=== PATIENT | female | born 1970 | race Caucasian/White ===

== ENCOUNTER 2024-03-12 09:39 | Emergency (ER) | payer MEDICARE, SELFPAY ==
[2024-03-12 09:55] VITALS: BP 116/61; PULSE 91; RESP 18; TEMP 35.8; O2SAT 98
--- NOTE | 2024-03-12 10:01 | ED_ITS ---
HPI - URI/Sore Throat General Chief Complaint: Upper Respiratory Infection Stated Complaint: SOB/Cough Time Seen by Provider: 03/12/24 09:40 Source: patient Mode of arrival: ambulatory Limitations: no limitations History of Present Illness HPI Narrative: Patient is a 54-year-old female who presents with 4 days of she feels dry cough, congestion, wheezing and shortness of breath on exertion. Has a history of a tr iple bypass and peripheral vascular disease with stents. Grandson diagnosed with pneumonia last week. Denies any fever, chills, nausea, vomiting, diarrhea. Related Data Home Medications ?Medication ?Instructions ?Recorded ?Confirmed ?Last Taken ?Type alprazolam 1 mg tablet (Xanax) 1 mg PO HS 03/12/24 03/12/24 Unknown History atorvastatin .Route 03/12/24 Unknown History clopidogrel 75 mg tablet (Plavix) 75 mg PO DAILY 03/12/24 03/12/24 Unknown History metoprolol tartrate 25 mg tablet 12.5 mg PO BID 03/12/24 03/12/24 Unknown History Allergies Allergy/AdvReac Type Severity Reaction Status Date / Time ciprofloxacin (From Cipro) Allergy Severe Anaphylaxis Verified 03/12/24 10:25 Review of Systems Review of Systems: All systems reviewed & are unremarkable except as noted in HPI and below Constitutional: Constitutional: Denies body ache(s), Denies chills, Denies fatigue, Denies fever(s), Denies headache(s), Denies malaise and Denies weakness Eyes: Eyes: Denies blurry vision, Denies itchy eyes and Denies loss of vision ENT: Denies otalgia, Denies headache(s), Reports nasal congestion, Denies sinus pain and Denies sore throat Cardiovascular: Cardiovascular: Denies chest pain, Denies irregular heart rhythm, Denies dyspnea and Reports dyspnea on exertion Respiratory: Respiratory: Reports cough, Denies dyspnea and Reports wheezing Gastrointestinal: Gastrointestinal: Denies abdominal pain, Denies diarrhea, Denies nausea and Denies vomiting Musculoskeletal: Musculoskeletal: Denies back pain, Denies myalgias and Denies arthralgias Integumentary/Breasts: Skin/Breast: Denies pruritus and Denies rash Neurologic: Denies headache(s), Denies loss of vision and Denies weakness Psychiatric: Psychiatric: Reports no additional psychiatric complaints Endocrine: Endocrine: Denies fatigue Allergic/Immunologic: Allergic/Immunologic: Denies itchy eyes PMFSH Comments At time of signature, agree with nursing past medical, surgical, social and family history. There is no relevant family history pertinent to the presenting complaint. Exam Const: General: cooperative, healthy appearing, comfortable, no acute distress and well nourished Nutritional Appearance: well nourished Orientation/consciousness: patient oriented x3 Limitations: no limitations HENMT: Head: normal to inspection, normocephalic and atraumatic Ears: hearing grossly normal bilaterally, external ears normal, TM's normal bilaterally, EAC's normal and no periauricular adenopathy Face/Nose/Sinus: Normal external nose present, Abnormal mucous membranes and turbinates present erythematous bilateral and diffuse, normal facial exam, sinuses nontender and face symmetric Face and sinus: normal facial exam, sinuses nontender and face symmetric Mouth: Yes Normal oral and palatal mucosa present, Yes lip normal, Yes tongue normal, Yes Normal salivary glands and ducts present, Yes oropharynx normal and Yes moist mucous membranes Teeth and gingiva: dentition normal Throat: posterior oropharynx normal, tonsils normal and uvula midline Eyes: General: appearance normal, both eyes and all related structures Alignment and Position: alignment normal and position normal Periorbital: periorbital findings normal Eyelids: eyelids normal Pupils: Equal, round and reactive pupils present Neck: Neck: normal visual inspection, full ROM, no lymphadenopathy and supple Chest: Chest palpation & inspection: normal inspection of the chest and normal palpation of entire chest wall Resp: Effort & Inspection: normal respiratory effort and able to speak in complete sentences Auscultation: crackles on the left in the lower lung gould (coarse), no rales, no rhonchi and no wheezes Cardio: Rate: regular rate Rhythm: regular rhythm Heart sounds: S1 normal heart sound present and S2 normal heart sound present GI: Inspection: normal to inspection Skin: General skin exam: normal color and no rashes or lesions noted Neuro: General: patient oriented x3 and moves all extremities Cranial nerves: Yes Equal, round and reactive pupils present Speech: normal speech Gait exam (Neuro): Normal gait present Extrem: General: normal to inspection, full ROM and no edema Psych: Appearance: grossly normal and well kempt Mental Status: mental status grossly normal Speech and movement: Normal speech and movement present Affect: normal affect Attitude: cooperative Thought process: Normal thought process present Course Course Emergency Course: Discharge instructions reviewed with patient, as well as provided in writing per nursing staff. The instructions also include specific and strict return/GO TO THE ER as well as f/u information. All questions have been answered, and the patient deny any further questions with discharge and discharge plan. Portions of this record may have been created with voice recognition software Level of Care: Express Care Visit Vital Signs Vital signs: Vital Signs Temperature 35.8 C L 03/12/24 09:55 Pulse Rate 91 03/12/24 09:55 Respiratory Rate 18 03/12/24 09:55 Blood Pressure 116/61 03/12/24 09:55 Pulse Oximetry 98 03/12/24 09:55 Oxygen Delivery Room Air 03/12/24 09:55 Temperature 35.8 C L 03/12/24 09:55 Pulse Rate 91 03/12/24 09:55 Respiratory Rate 18 03/12/24 09:55 Blood Pressure 116/61 03/12/24 09:55 Pulse Oximetry 98 03/12/24 09:55 Oxygen Delivery Room Air 03/12/24 09:55 Reviewed MDM - URI/Sore Throat MDM Narrative Medical decision making narrative: Patient is a 54-year-old female with significant past medical history including stents in heart and legs, COPD. Will treat with antibiotics and steroids due to risk factors. Discussed course of treatment with patient. Pt well hydrated appearing, in no respiratory distress, hemodynamically stable. Recommend supportive care. The patient is stable at time of discharge the clinical impression was discussed and the patient was given the opportunity to ask questions, which were addressed as completely as possible given the information available at present. Anticipatory guidance and return to care precautions were discussed and the importance of primary care follow-up was stressed and encouraged. The patient voiced understanding of the plan, indications to return, and the need for follow-up. Differential diagnosis considered: [place] virus, strep pharyngitis, allergic rhinitis, upper respiratory tract infection, sinusitis, rhinosinusitis, nasopharyngitis. viral pharyngitis, otitis media, otitis externa, otitis effusion, foreign body, cerumen impaction, viral syndrome, and influenza.? Exam findings show no acute concerns or changes; patient is non-toxic appearing and is in no distress.? Patient is appropriate for outpatient treatment and follow- up.? Medical Records Attestation: I reviewed the patient's medical records. Discharge Plan Discharge Clinical Impression: Upper respiratory infection with cough and congestion Patient Disposition: Home, Self-Care Condition: Stable Instructions: Upper Respiratory Infection (ED) Additional Instructions: Take antibiotic as prescribed. Take steroids in the morning with food. Use inhaler with spacer as needed. Other symptomatic treatments include: -Alternate Tylenol and Motrin per package directions for fever or pain. -Antihistamine medication such as Benadryl at night and Zyrtec/Claritin/Odalys during the day can help improve symptoms. -Use Flonase twice a day for 5 days then daily to help reduce the inflammation and dry up your sinuses. -You can also use Sudafed or Mucinex. Be sure to drink plenty of water with these medications at least 8 ounces with every dose and it is important to drink 8 to 10 glasses of water per day. Water is a natural decongestant -Eat and drink things that are easy to swallow, like tea or soup, or popsicles. -Oral rinses such as: Salt water gargles and/or may use topical anesthetic (eg. Chloraseptic spray) or lozenges to relieve dryness or throat pain). -Frequent hand washing or hand pe electrical engineer is one of the best ways to prevent spread of infection. -Using a vaporizer or humidifier at night will also help thin secretions and help with coughing up phlegm. -Follow up with primary care provider in 3-5 days if condition is not improving - For new or worsening symptoms go directly to the nearest ER Patient Language: Citizen Of [place] Prescriptions: New prednisone 20 mg tablet 40 mg PO DAILY 5 Days Qty: 10 0RF amoxicillin 875 mg tablet 875 mg PO Q12H 7 Days Qty: 14 0RF albuterol sulfate 90 mcg/actuation HFA aerosol inhaler 2 puff inhalation QID PRN (Reason: shortness of breath or wheezing) Qty: 6.7 0RF (DME) Aerochamber MV Spacer See Rx Instructions .Route Qty: 1 0RF Rx Instructions: As directed No Action metoprolol tartrate 25 mg tablet 12.5 mg PO BID clopidogrel [Plavix] 75 mg tablet 75 mg PO DAILY atorvastatin .Route alprazolam [Xanax] 1 mg tablet 1 mg PO HS Follow-up/Referrals: Robin,Lucius Long MD [Primary Care Provider] - 3 Days Time of Disposition: 10:48
== END 2024-03-12 10:50 | disposition home or self-care (01) ==
PROVIDERS: Emergency Provider Nurse Practitioner Family; PCP Internal Medicine
DX: J06.9 Acute upper respiratory infection, unspecified (principal); Z79.899 Other long term (current) drug therapy
CPT/HCPCS: 99203; G0463

== ENCOUNTER 2024-04-18 16:44 | Emergency (ER) | payer MEDICARE, SELFPAY ==
[2024-04-18 16:56] VITALS: BP 88/58; PULSE 108; RESP 20; TEMP 36.6; O2SAT 95
--- NOTE | 2024-04-18 17:59 | ED_ITS ---
HPI - URI/Sore Throat General Chief Complaint: Upper Respiratory Infection Stated Complaint: Sinus/Cough Time Seen by Provider: 04/18/24 18:00 Source: patient, RN notes reviewed and old records reviewed Mode of arrival: ambulatory Limitations: no limitations History of Present Illness HPI Narrative: Patient presents with 2 days of URI symptoms. She recently recovered from pneumonia. She initially says she feels she needs steroids and antibiotics. After more discussion, she declines chest x-ray or flu/COVID testing. She reports that her 2-year-old goes to daycare and often times brings home lots of bugs that have to work themselves out. Related Data Home Medications ?Medication ?Instructions ?Recorded ?Confirmed ?Last Taken ?Type alprazolam 1 mg tablet (Xanax) 1 mg PO HS 03/12/24 03/12/24 Unknown History atorvastatin .Route 03/12/24 Unknown History clopidogrel 75 mg tablet (Plavix) 75 mg PO DAILY 03/12/24 03/12/24 Unknown Hi story metoprolol tartrate 25 mg tablet 12.5 mg PO BID 03/12/24 03/12/24 Unknown History aripiprazole 5 mg tablet mg 04/18/24 Unknown History citalopram 20 mg tablet mg 04/18/24 Unknown History Allergies Allergy/AdvReac Type Severity Reaction Status Date / Time ciprofloxacin (From Cipro) Allergy Severe Anaphylaxis Verified 04/18/24 17:33 Review of Systems Review of Systems: All systems reviewed & are unremarkable except as noted in HPI and below Constitutional: Constitutional: Reports no additional constitutional complaints ENT: Reports system reviewed and no additional complaints, except as docum ented Cardiovascular: Cardiovascular: Reports no additional cardiovascular complaints Respiratory: Respiratory: Reports no additional respiratory complaints Gastrointestinal: Gastrointestinal: Reports no additional gastrointestinal complaints [facility] Comments At the time of my signature, I reviewed and agree with the nursing past medical, surgical, social, and family history. There is no relevant family history pertinent to the patient complaint. Exam Const: General: cooperative, no acute distress, alert and awake Orientation/consciousness: oriented to person, oriented to place and oriented to time HENMT: Head: normal to inspection Resp: Effort & Inspection: normal respiratory effort and able to speak in complete sentences Auscultation: clear to auscultation bilaterally, no crackles, no rales, no rhonchi and no wheezes Cardio: Palpation: normal PMI Rate: regular rate Rhythm: regular rhythm Heart sounds: S1 normal heart sound present and S2 normal heart sound present Neuro: General: oriented to person, oriented to place and oriented to time Cranial nerves: Yes CN's II-XII intact bilaterally Psych: Appearance: grossly normal Thought process: Normal thought process present Insight: Good insight present (Psych) Judgement: Good judgement present (Psych) Course Course Level of Care: Express Care Visit Vital Signs Vital signs: Vital Signs Temperature 97.8 F 04/18/24 16:56 Pulse Rate 108 H 04/18/24 16:56 Respiratory Rate 20 04/18/24 16:56 Blood Pressure 88/58 L 04/18/24 16:56 Pulse Oximetry 95 04/18/24 16:56 Oxygen Delivery Autopap 04/18/24 16:56 Temperature 97.8 F 04/18/24 16:56 Pulse Rate 108 H 04/18/24 16:56 Respiratory Rate 20 04/18/24 16:56 Blood Pressure 88/58 L 04/18/24 16:56 Pulse Oximetry 95 04/18/24 16:56 Oxygen Delivery Autopap 04/18/24 16:56 Reviewed Discharge Plan Discharge Clinical Impression: Upper respiratory infection Qualifiers: URI type: unspecified viral URI Qualified Code(s): J06.9 - Acute upper respiratory infection, unspecified Patient Disposition: Home, Self-Care Condition: Stable Instructions: Antibiotic Form, Cold Symptoms (ED) Additional Instructions: Take [id number] medications as needed to treat your symptoms. Please follow package instructions. Follow-up with primary care provider. Emergency department for new or worse symptoms Patient Language: Turkish Prescriptions: No Action metoprolol tartrate 25 mg tablet 12.5 mg PO BID clopidogrel [Plavix] 75 mg tablet 75 mg PO DAILY atorvastatin .Route alprazolam [Xanax] 1 mg tablet 1 mg PO HS albuterol sulfate 90 mcg/actuation HFA aerosol inhaler 2 puff inhalation QID PRN (Reason: shortness of breath or wheezing) Qty: 6.7 0RF (DME) Aerochamber MV Spacer See Rx Instructions .Route Qty: 1 0RF Rx Instructions: As directed ondansetron 4 mg tablet,disintegrating 4 mg PO Q6-8H PRN (Reason: nausea and vomiting) Qty: 7 0RF citalopram 20 mg tablet aripiprazole 5 mg tablet Follow-up/Referrals: Robin,Lucius Long MD [Primary Care Provider] - 1 Week Time of Disposition: 18:10
== END 2024-04-18 18:17 | disposition home or self-care (01) ==
PROVIDERS: Emergency Provider Nurse Practitioner Family; PCP Internal Medicine
DX: J06.9 Acute upper respiratory infection, unspecified (principal); I10 Essential (primary) hypertension; E78.00 Pure hypercholesterolemia, unspecified; J44.9 Chronic obstructive pulmonary disease, unspecified; I73.9 Peripheral vascular disease, unspecified; F41.9 Anxiety disorder, unspecified; Z95.1 Presence of aortocoronary bypass graft; Z95.820 Peripheral vascular angioplasty status with implants and grafts; Z95.828 Presence of other vascular implants and grafts
CPT/HCPCS: 99211; G0463

== ENCOUNTER 2025-01-18 18:04 | Emergency (ER) | payer MEDICARE, SELFPAY ==
--- NOTE | ~2025-01-18 | XR_ITS ---
EXAMINATION: XR chest 2V, 01/18/2025 18:32 CDT HISTORY: cough few days, smoker, hx pneumonia, copd, emphysemz COMPARISON: No comparisons available. Technique: 2 views obtained. Findings: The lungs are clear, no effusion. No pneumothorax. Heart is normal size. Mediastinal and hilar contours are within normal limits. Bony thorax no acute abnormality. Impression: No acute cardiopulmonary abnormality. Reviewed, dictated and finalized at location P. Impression: No acute cardiopulmonary abnormality.
[2025-01-18 18:15] VITALS: BP 125/78; PULSE 93; RESP 18; TEMP 36.3; O2SAT 98
--- NOTE | 2025-01-18 18:20 | ED_ITS ---
HPI - Female Genitourinary General Chief complaint: Urogenital-Female Stated complaint: UTI/Sinus Time Seen by Provider: 01/18/25 18:20 Source: patient, RN notes reviewed and old records reviewed Mode of arrival: ambulatory Limitations: no limitations History of Present Illness HPI Narrative: 54 year old female who presents to [facility] care with complaints of 3-4 days of nasal congestion with drainage,productive cough of greenish phlegm, post nasal drainage headache and diarrhea X1. Patient reports no fevers, body aches or sore throat, Patient reports that she has been taking Delsym cough medication and NyQuil for her URI symptoms. Patient reports that she has had past pneumonia and is concerned for present pneumonia. Patient also reports that she has UTI symptoms of urinary frequency and burning,, dark and foul odorous urine, some left lower back pain. She reports that she doesn't feel like she is emptying completely. Patient denies any nausea or vomiting, lower abdominal pain or any flankpain. Patient is on daily Plavix for cardiac and peripheral vascular disease. MD elicited complaint: UTI and other (URI symptoms) Onset (ago): day(s) (3-4 days) Location of symptoms: perineum and low back Severity scale (1-10): 3 Quality of pain: dull and burning Vaginal discharge: none Vaginal bleeding: none Treatment prior to arrival: other (taking Delsym cough syrup and NyQuil for her URI symptoms) Related Data Home Medications ?Medication ?Instructions ?Recorded ?Confirmed ?Last Taken ?Type alprazolam 1 mg tablet (Xanax) 1 mg PO HS 03/12/24 Unknown History atorvastatin .Route 03/12/24 Unknown His tory clopidogrel 75 mg tablet (Plavix) 75 mg PO DAILY 03/1203/12/24 Unknown History metoprolol tartrate 25 mg tablet 12.5 mg PO BID 03/12/24 Unknown History aripiprazole 5 mg tablet mg 04/18/24 Unknown History citalopram 20 mg tablet mg 04/18/24 Unknown History pantoprazole 40 mg tablet,delayed mg PO 01/18/25 Unkn own History release Allergies Allergy/AdvReac Type Severity Reaction Status Date / Time [facility] Allergy Severe Anaphylaxis Verified 01/18/25 18:05 Review of Systems Review of Systems: CONSTITUTIONAL: Denies fever, chills, or sweats. CARDIOVASCULAR: Denies chest pain, palpitations, or edema. RESPIRATORY: reports productive cough with nasal congestion and drainage, denies any acute dyspnea or any fevers, GASTROINTESTINAL: Denies abdominal pain, nausea, vomiting, or diarrhea. GENITOURINARY: Reports dysuria, frequency, urgency. Denies flank pain or visible hematuria.urine is odorous and dark SKIN: Denies rash or itching. MUSCULOSKELETAL: Reports left lower back pain or myalgia. Denies CVA tenderness NEUROLOGIC: Denies headache All systems reviewed & are unremarkable except as noted in HPI and below PMFSH Past Medical History Medical History (Updated 01/20/25 @ 16:31 by Denise Torres APRN) Insomnia Anxiety and depression Hyperlipidemia Hypertension Peripheral vascular disease stents in legs bilateral abdomen and gastric COPD (chronic obstructive pulmonary disease) Surgical History Surgical History (Updated 01/20/25 @ 16:27 by Denise Torres APRN) History of open heart surgery 3 vessel bypass Social History Social History (Updated 01/20/25 @ 16:31 by Denise Torres APRN) Smoking packs per day: 0.5 Smoking cigarettes per day: 10.0 Smoking status: Current every day smoker Tobacco type: cigarettes Alcohol intake: unknown Substance use: unknown Gender identity (if verbalized by the patient): Female Comments At time of signature, agree with nursing past medical, surgical, social and family history. There is no relevant family history pertinent to the presenting complaint Exam Narrative: GENERAL: older than stated years-appearing, well-nourished, and in no acute distress. HEAD: Normocephalic, atraumatic. NECK: Supple.no lymphadenopathy CHEST: coarse decreased to auscultation. No respiratory distress.cough noted SAO2 98% on room air HEART: Regular rate and rhythm. No murmur heard. Normal peripheral pulses. ABDOMEN: Soft, nontender, nondistended, normal active bowel sounds. No CVA tenderness, burning and pain with urination EXTREMITIES: Normal range of motion. No edema. SKIN: Warm, dry, no rash. NEURO: No focal deficits. Alert and oriented x3. Course Course Emergency Course: Patient is aware of diagnosis, understands and agrees to treatment plan.? Anticipatory guidance given.? Patient agrees to follow-up as directed and is aware of reasons to seek care at the emergency department. Portions of this record may have been created with voice recognition software Level of Care: Express Care Visit Vital Signs Vital signs: Vital Signs Temperature 36.3 C L 01/18/25 18:15 Pulse Rate 93 01/18/25 18:15 Respiratory Rate 18 01/18/25 18:15 Blood Pressure 125/78 01/18/25 18:15 Pulse Oximetry 98 01/18/25 18:15 Oxygen Delivery Room Air 01/18/25 18:15 Temperature 36.3 C L 01/18/25 18:15 Pulse Rate 93 01/18/25 18:15 Respiratory Rate 18 01/18/25 18:15 Blood Pressure 125/78 01/18/25 18:15 Pulse Oximetry 98 01/18/25 18:15 Oxygen Delivery Room Air 01/18/25 18:15 MDM - Female Genitourinary MDM Narrative Medical decision making narrative: Exam findings and UA show no acute concerns or changes; patient is non-toxic appearing and is in no distress.? Patient is appropriate for outpatient treatment and follow-up. Differential Diagnosis Differential diagnosis: Likely urinary tract infection, cystitis and other (dysuria, URI, cough and congestion) Lab Data Attestation: I reviewed the patient's lab results. Lab results narrative: Urine dip: Glucose negative, bilirubin negative, ketone trace specific gravity 1.015 blood 2+ pH 5.5 protein 2+ urobilinogen 1.0 nitrate positive leukocyte 2+ Labs: Lab Results 01/18/25 Range/Units 18:22 POC Urine Color Dark POC Urine Clarity Cloudy POC Urine pH 5.5 POC Ur Specif [place] 1.015 POC Urine Protein 2+ (Negative) POC Ur Glucose (UA) Negative (Negative) POC Urine Ketones Trace (Negative) POC Urine Blood 2+ (Negative) POC Urine Nitrite Positive (Negative) POC Urine Bilirubin Negative (Negative) POC Urine Urobilinogen 1.0 POC U Leukocyte Esteras 2+ (Negative) reviewed Imaging Data Attestation: I personally reviewed and interpreted this imaging study as follows: My impression: no acute cardiopulmonary abnormality Radiologist's impression: [facility] [address] [place] [address] XRay Report Signed Patient: Desiree Christianson : 1970 MR#: [id number] Age: 54 Acct:[id number] Loc: [facility] ADM Date: 01/18/[address]: Ordering Physician: Denise Torres APRN Date of Service: 01/18/25 Procedure(s): XR chest 2V Accession Number(s): [id number] cc: Robin, Lucius Long MD; Denise Torres APRN~ EXAMINATION: XR chest 2V, 01/18/2025 18:32 CDT HISTORY: cough few days, smoker, hx pneumonia, copd, emphysemz COMPARISON: No comparisons available. Technique: 2 views obtained. Findings: The lungs are clear, no effusion. No pneumothorax. Heart is normal size. Mediastinal and hilar contours are within normal limits. Bony thorax no acute abnormality. Impression: No acute cardiopulmonary abnormality. Reviewed, dictated and finalized at location P. Please be advised this is a medical document. It is intended for [id number] communication. It is written in medical language and may contain unfamiliar abbreviations or verbiage. Medical documents are intended to carry relevant information, facts as evident, and the clinical opinion of the practitioner at the time of the encounter. This report may have been done utilizing a voice recognition system. Attempts have been made to correct errors. However, there may be uncorrected grammatical, spelling, and recognition errors present. The file time of this note does not necessarily represent the time of service. Dictated By: Jose Hubbard MD 01/18/251844 Signed By: <Electronically signed by Jose Hubbard MD in OV> 01/18/251844 Critical Care Time Critical Care Time Critical Care Time: No Discharge Plan Discharge Clinical Impression: Cough in adult patient Urinary tract infection Qualifiers: Urinary tract infection type: site unspecified Hematuria presence: with hematuria Qualified Code(s): N39.0 - Urinary tract infection, site not specified Patient Disposition: Home Condition: Stable Instructions: Antibiotic Form, Urinary Tract Infection in Women (ED), Acute C ough (ED) Additional Instructions: Increase fluids especially cranberry juice and water Avoid caffeine and carbonated beverages Antibiotic as directed Tylenol/ibuprofen for pain or fever Follow-up with her primary care provider if further problems or concerns Recheck if you have fever over 101, nausea and vomiting. Continue to use your inhaler as prescribed Zyrtec Claritin or Odalys daily include Coricidin brand decongestant If your symptoms persist, change or worsen significantly before you can contact your personal physician then please, without delay, go to the emergency depar tment for further evaluation. Follow-up with PCP in 7-10 days or sooner if needed Stop smoking Patient Language: Mohawk Prescriptions: New amoxicillin-pot clavulanate 875-125 mg tablet 1 tablet PO Q12H Qty: 20 0RF Rx Instructions: take all doses of medication, recommend eating Activia yogurt or taking probiotic while on this medication No Action metoprolol tartrate 25 mg tablet 12.5 mg PO BID clopidogrel [Plavix] 75 mg tablet 75 mg PO DAILY atorvastatin .Route alprazolam [Xanax] 1 mg tablet 1 mg PO HS albuterol sulfate 90 mcg/actuation HFA aerosol inhaler 2 puff inhalation QID PRN (Reason: shortness of breath or wheezing) Qty: 6.7 0RF (DME) Aerochamber MV Spacer See Rx Instructions .Route Qty: 1 0RF Rx Instructions: As directed ondansetron 4 mg tablet,disintegrating 4 mg PO Q6-8H PRN (Reason: nausea and vomiting) Qty: 7 0RF citalopram 20 mg tablet aripiprazole 5 mg tablet pantoprazole 40 mg tablet,delayed release (DR/EC) PO Follow-up/Referrals: Robin,Lucius Long MD [Primary Care Provider] Time of Disposition: 18:58 Quality Jaquan Coma Scale Eyes: Open Verbal: Oriented and Alert Motor: Follows Commands Jaquan Coma Total Score: 15
[2025-01-18 18:25] LABS: EDUAAPPEAR Cloudy; EDUABILI Negative (Negative); EDUABLOOD 2+ (Negative); EDUACOLOR1 Dark; EDUAGLUCOSE Negative (Negative); EDUAKETONE Trace (Negative); EDUALEUKO 2+ (Negative); EDUANITRATE Positive (Negative); EDUAPH 5.5; EDUAPROTEIN 2+ (Negative); EDUASPGRAVITY 1.015; EDUAUROBILI 1.0
== END 2025-01-18 19:05 | disposition home or self-care (01) ==
PROVIDERS: Emergency Provider Registered Nurse; PCP Internal Medicine
DX: R05.9 Cough, unspecified (principal); N39.0 Urinary tract infection, site not specified; F17.210 Nicotine dependence, cigarettes, uncomplicated; I10 Essential (primary) hypertension; E78.5 Hyperlipidemia, unspecified; I73.9 Peripheral vascular disease, unspecified; J44.9 Chronic obstructive pulmonary disease, unspecified; F41.9 Anxiety disorder, unspecified; F32.A Depression, unspecified; Z95.820 Peripheral vascular angioplasty status with implants and grafts; Z95.828 Presence of other vascular implants and grafts
CPT/HCPCS: 71046; 81003; 87086; 87186; 99213; G0463